=== PATIENT | male | born 1975 | race American Indian/Alaskan Native ===

== ENCOUNTER 2017-01-09 12:23 | Emergency (ER) | payer OTHER ==
[2017-01-09 12:24] VITALS: BMI 34.4
[2017-01-09 12:49] VITALS: PULSE 80; TEMP 98.3; O2SAT 97
--- NOTE | 2017-01-09 13:34 | ED PDOC ---
Arrival/HPI - General Historian: Patient - General Chief Complaint: Suture/Staple Removal Time Seen by Provider: 01/09/17 13:31 - History of Present Illness Narrative History of Present Illness (Text): 01/09/17 13:34 41yr old male presents today for suture removal from lower lip. pt was in [place] and fell in bathroom 7 days ago. pt states he had laceration repair in [place] and has been on amoxicillin. pt denies fever/chills. denies pain. Now here for suture removal. (Glory Herrmann) Past Medical History - Provider Review Nursing Documentation Reviewed: Yes - Travel History Have you recently traveled outside [place] w/in the past 3 mons?: No - Infectious Disease Hx of Infectious Diseases: None - Tetanus Immunization Tetanus Immunization: Up to Date - Pulmonary Hx Respiratory Disorders: Yes Hx Asthma: Yes - Psychiatric Hx Substance Use: No Family/Social History - Physician Review Nursing Documentation Reviewed: Yes Family/Social History: Unknown Family HX Smoking Status: Former Smoker Hx Alcohol Use: Yes Hx Substance Use: No Allergies/Home Meds Allergies/Adverse Reactions: Allergies No Known Allergies Allergy (Verified 01/09/17 12:45) Review of Systems - Review of Systems Constitutional: absent: Fatigue, Fevers Respiratory: absent: SOB, Cough Cardiovascular: absent: Chest Pain, Palpitations Gastrointestinal: absent: Abdominal Pain, Vomiting Musculoskeletal: absent: Arthralgias, Back Pain Skin: Laceration (lower lip 7 days ago.) Psychiatric: absent: Anxiety, Depression Physical Exam Vital Signs Reviewed: Yes Temperature: Afebrile Blood Pressure: Normal Pulse: Regular Respiratory Rate: Normal Appearance: Positive for: Well-Appearing, Non-Toxic, Comfortable Pain Distress: None Mental Status: Positive for: Alert and Oriented X 3 - Systems Exam Head: Present: Laceration (laceration to lower lip with [address] no erythema; no edema, + minimal yellow discharge, + maceration. ). No: Tenderness Mouth: Present: Moist Mucous Membranes Neck: Present: Normal Range of Motion Respiratory/Chest: Present: Clear to Auscultation Cardiovascular: Present: Regular Rate and Rhythm Neurological: Present: GCS=15 Skin: Present: Warm, Dry Psychiatric: Present: Alert, Oriented x 3 Medical Decision Making ED Course and Treatment: 01/09/17 13:39 41yr old male presenting for suture removal; pt with 7 day old laceration to skin of lower lip just inferior to roro border with [address] + maceration. no erythema. 4 sutures removed; slight wound dehisence approx 2cm to right side of laceration. will cover patient with bactrim po. steri-strip applied. advised f/u with plastic surgeon; advised immediate return if symptoms worsen, persist or if new symptoms develop. Patient verbalizes understanding of discharge instructions and need for immediate followup. pt seen and evaluated by dr. leyva. impression; suture removal Keep wound clean and dry Follow up with plastic surgeon within the next 2 days Follow up with the primary care physician within the next 2days. Bactrim; 1 tablet twice daily x 7 days. return immediately if symptoms worsen,persist or if new symptoms develop. (Glory Herrmann) I was available for consultation during PA evaluation. The chart was reviewed by me, and I agree with disposition. The documented history was done by the physician code enforcement inspector. The documented physical exam was done by the physician code enforcement inspector. The documented procedures were done by the physician code enforcement inspector. (Stephan Leyva) Disposition/Present on Arrival - Present on Arrival Any Indicators Present on Arrival: No History of DVT/PE: No History of Uncontrolled Diabetes: No Urinary Catheter: No History of Decub. Ulcer: No History Surgical Site Infection Following: None - Disposition Have Diagnosis and Disposition been Completed?: Yes Disposition Time: 13:31 Patient Plan: Discharge - Disposition Diagnosis: Encounter for removal of sutures Disposition: HOME/ ROUTINE Condition: GOOD Discharge Instructions (ExitCare): Facial Laceration (ED) Additional Instructions: Keep wound clean and dry Follow up with plastic surgeon within the next 2 days Follow up with the primary care physician within the next 2days. Bactrim; 1 tablet twice daily x 7 days. return immediately if symptoms worsen,persist or if new symptoms develop. Prescriptions: Sulfamethoxazole/Trimethoprim [Bactrim DS 800 mg-160 mg] 1 tab PO BID #14 tab Referrals: Eden Ochoa MD [Non-Staff] - Follow up with primary Rohit Castillo MD [Staff Provider] - Follow up with primary Eloy Murrell MD [Medical Doctor] - [facility] [Outside] - Follow up with primary Forms: [facility] [employer] ([place]), WORK NOTE
[2017-01-09 14:17] VITALS: BP 138/84; RESP 16
== END 2017-01-09 14:00 | disposition home or self-care (01) ==
LOC: ED 12:23
DX: Z48.02 Encounter for removal of sutures (principal)